=== PATIENT | female | born 1970 | race Caucasian/White ===

== ENCOUNTER 2021-04-25 14:26 | Emergency (ER) | payer OTHER, SELFPAY ==
--- NOTE | ~2021-04-25 | XR_ITS ---
EXAMINATION: XR forearm LT 2V DATE: 04/25/2021 14:58 INDICATION: Left elbow injury and pain. TECHNIQUE: 2 views of left forearm were obtained. COMPARISON: None. FINDINGS: Bone alignment is normal. No fracture. Joint spaces are well maintained. There is no elbow joint effusion. IMPRESSION: 1. Normal left forearm. Reviewed, dictated and finalized at location A. IMPRESSION: 1. Normal left forearm.
[2021-04-25 14:33] VITALS: BP 113/74; PULSE 88; RESP 14; TEMP 36.8; O2SAT 99
--- NOTE | 2021-04-25 14:43 | ED.UPPEXIN ---
HPI - Extremity Injury (Upper) General Chief Complaint: Extremity Injury, Upper Stated Complaint: left arm injury Time Seen by Provider: 04/25/21 14:43 Source: patient Mode of arrival: ambulatory Limitations: no limitations History of Present Illness HPI narrative: 50-year-old female presents to the [facility] with complaints of left proximal forearm pain for the last 9 days. States that she tripped and fell after getting tangled with a dog and has been treating it at home. States that she was just hoping to get better now concerned that there was something more serious going on. Pain with movement. Pain with palpation to the lateral aspect of the proximal forearm and elbow. Related Data Home Medications Medication Instructions Recorded Confirmed citalopram mg 04/25/21 norethindrone-e.estradiol-iron [Lo tablet 04/25/21 Loestrin Fe] Allergies Allergy/AdvReac Type Severity Reaction Status Date / Time No Known Allergies Allergy Verified 04/25/21 14:43 Review of Systems Review of Systems: All systems reviewed & are unremarkable except as noted in HPI and below Constitutional: Constitutional: Reports no additional constitutional complaints, Denies chills and Denies fever(s) Eyes: Eyes: Reports no additional eye complaints ENT: Reports system reviewed and no additional complaints, except as documented Cardiovascular: Cardiovascular: Reports no additional cardiovascular complaints and Denies chest pain Respiratory: Respiratory: Reports no additional respiratory complaints Gastrointestinal: Gastrointestinal: Reports no additional gastrointestinal complaints Musculoskeletal: Musculoskeletal: Reports as per HPI, Reports arthralgias (Left elbow) and Denies joint swelling Comments: Left forearm and elbow pain Integumentary/Breasts: Skin/Breast: Reports system reviewed and no additional complaints, except as docu, Denies pruritus, Denies erythema and Denies rash Neurologic: Reports system reviewed and no additional complaints, except as documented Psychiatric: Psychiatric: Reports no additional psychiatric complaints Allergic/Immunologic: Allergic/Immunologic: Reports no additional allergic/immunologic complaints PMFSH Past Medical History Medical History (Updated 04/27/21 @ 16:11 by Nikki Harding) Anxiety and depression Surgical History Surgical History (Updated 04/27/21 @ 16:08 by Nikki Harding) No significant past surgical history Social History Social History (Updated 04/27/21 @ 16:08 by Nikki Harding) Living arrangements: with family Gender identity (if verbalized by the patient): Female Comments At the time of my signature, I reviewed and agree with the nursing past medical, surgical, social, and family history. There is no relevant family history pertinent to the patient complaint. Exam Const: General: healthy appearing, no acute distress and alert Nutritional Appearance: well nourished Orientation/consciousness: patient oriented x3 Limitations: no limitations HENMT: Head: normal to inspection Eyes: Pupils: Equal, round and reactive pupils present Neck: Neck: normal visual inspection, no lymphadenopathy and no meningeal signs Chest: Chest palpation & inspection: normal inspection of the chest Resp: Effort & Inspection: normal respiratory effort Auscultation: clear to auscultation bilaterally Cardio: Rate: regular rate Rhythm: regular rhythm Back/Spine/Pelvis: Back: no CVA tenderness Skin: General skin exam: normal color Rashes: no rashes Wounds: no wounds Neuro: General: patient oriented x3, moves all extremities, no meningeal signs and no focal motor deficits Speech: normal speech Gait exam (Neuro): Normal gait present Extrem: General: normal to inspection and no pedal edema Right upper extremity: elbow/forearm tenderness and normal ROM; no swelling Elbow/forearm/wrist images: 1. Tenderness to palpation and movement without signs of infection, bruising, sw
== END 2021-04-25 15:10 | disposition home or self-care (01) ==
PROVIDERS: Emergency Provider Nurse Practitioner; PCP Internal Medicine
DX: S50.12XA Contusion of left forearm, initial encounter (principal); W01.0XXA Fall on same level from slipping, tripping and stumbling without subsequent striking against object, initial encounter; F41.9 Anxiety disorder, unspecified; F32.A Depression, unspecified
CPT/HCPCS: 73090; 99213; G0463

== ENCOUNTER 2023-01-09 12:54 | Emergency (ER) | payer SELFPAY ==
--- NOTE | ~2023-01-09 | XR_ITS ---
EXAMINATION: XR ankle RT min 3V INDICATION: Right ankle pain TECHNIQUE: Four views of the right ankle are obtained. COMPARISON: None available FINDINGS: There is lateral soft tissue swelling of ankle. Bone alignment is normal. There is no fract ure. The ankle mortise is intact. IMPRESSION: 1. Ankle soft tissue swelling without acute osseous abnormality. Reviewed, dictated and finalized at location B.
[2023-01-09 13:00] VITALS: BP 116/71; PULSE 92; RESP 16; TEMP 36.8; O2SAT 98
--- NOTE | 2023-01-09 13:07 | ED.LOWEXIN ---
HPI - Extremity Injury (Lower) General Chief Complaint: Extremity Injury, Lower Stated Complaint: Right Foot Injury Source: patient and RN notes reviewed History of Present Illness HPI Narrative: 52 yo F Presents to urgent care with complaints of right lateral ankle pain since Father's Day. Pt states she woke up that morning with this pain in her ankle. Pt denies any specific injury but does admit to moving furniture the day before and thought she may have twisted it. Pt has been taking Advil and applying an ankle wrap which has helped. Denies any numbness, tingling, or any other complaints. Related Data Home Medications Medication Instructions Recorded Confirmed norethindrone 1 mg-ethinyl 1 tablet PO DAILY 01/09/23 01/09/23 estradiol 20 mcg (21)-iron 75 mg (7) tablet ([place] Fe 08/01 (28)) Allergies Allergy/AdvReac Type Severity Reaction Status Date / Time No Known Allergies Allergy Verified 01/09/23 13:10 Review of Systems Review of Systems: CONSTITUTIONAL: Denies fever, chills, or sweats. EYES: Denies visual changes, redness, or discharge. ENT: Denies otalgia and sore throat CARDIOVASCULAR: Denies chest pain, palpitations, or edema. RESPIRATORY: Denies cough or dyspnea. GASTROINTESTINAL: Denies abdominal pain, nausea, vomiting, or diarrhea. GENITOURINARY: Denies dysuria or hematuria. SKIN: Denies rash or itching. MUSCULOSKELETAL: Right foot pain NEUROLOGIC: Denies headache, numbness, or weakness. Pertinent positives per HPI. PMFSH Past Medical History Medical History (Updated 01/09/23 @ 13:09 by Candis Azul APRN) Anxiety and depression Surgical History Surgical History (Updated 04/27/21 @ 16:08 by Nikki Harding APRN) No significant past surgical history Social History Social History (Updated 04/27/21 @ 16:08 by Nikki Harding APRN) Living arrangements: with family Gender identity (if verbalized by the patient): Female Comments At the time of my signature, I reviewed and agree with the nursing past medical, surgical, social, and family history. There is no relevant family history pertinent to the patient complaint. Exam Narrative: GENERAL: This is a well-nourished, well-developed patient, in no apparent distress. HEAD: normocephalic, atraumatic. EYES: Sclera clear/white. Vision is grossly intact. EARS: External ears normal, auditory canals clear and without drainage. Hearing grossly intact. NOSE: External nose normal with no obvious nasal discharge, nares without redness, no rhinorrhea. THROAT: Mucous membranes moist, posterior pharynx clear. NECK: Neck supple, non-tender without lymphadenopathy, masses or thyromegaly. CARDIOVASCULAR: Regular rate RESPIRATORY: No respiratory distress SKIN: warm, intact with no suspicious lesions or rash, good texture and turgor. NEURO: awake, alert, and oriented to person, place and time. There were no obvious focal neurologic abnormalities. EXTREMITIES: Mild tenderness and swelling to right lateral ankle. Tenderness just inferior to the lateral malleolus. Course Course Level of Care: Express Care Visit Vital Signs Vital signs: Vital Signs Temperature 98.2 F 01/09/23 13:00 Pulse Rate 92 01/09/23 13:00 Respiratory Rate 16 01/09/23 13:00 Blood Pressure 116/71 01/09/23 13:00 Pulse Oximetry 98 01/09/23 13:00 Oxygen Delivery Room Air 01/09/23 13:00 Temperature 98.2 F 01/09/23 13:11 Pulse Rate 92 01/09/23 13:11 Respiratory Rate 16 01/09/23 13:11 Blood Pressure 116/71 01/09/23 13:11 Pulse Oximetry 98 01/09/23 13:11 Oxygen Delivery Room Air 01/09/23 13:11 reviewed. MDM - Extremity Injury (Lower) MDM Narrative Medical decision making narrative: Use the RICE method at home. May take ibuprofen and/or Tylenol if needed. If symptoms persist in 1 week after conservative treatment, follow-up with specialist. Differential Diagnosis Differential diagnosis: Likely ankle sprain and
[2023-01-09 13:11] VITALS: BP 116/71; PULSE 92; RESP 16; TEMP 36.8; O2SAT 98
== END 2023-01-09 13:28 | disposition home or self-care (01) ==
PROVIDERS: Emergency Provider Nurse Practitioner Family; PCP Internal Medicine
DX: S93.401A Sprain of unspecified ligament of right ankle, initial encounter (principal); S96.911A Strain of unspecified muscle and tendon at ankle and foot level, right foot, initial encounter; X50.0XXA Overexertion from strenuous movement or load, initial encounter
CPT/HCPCS: 73610; 99213; G0463

== ENCOUNTER 2024-05-20 08:29 | Outpatient (CLI) | payer OTHER, SELFPAY ==
--- NOTE | ~2024-05-20 | XR_ITS ---
EXAMINATION: XR chest 2V 05/20/2024 08:40 INDICATION: Left lower chest pain PROCEDURE: 2 view chest COMPARISON: No prior studies for comparison. FINDINGS: The lungs are clear. The cardiomediastinal silhouette is within normal limits. There are no pleural effusions. There is no pneumothorax suspected. IMPRESSION: 1: NO ACUTE CARDIOPULMONARY DISEASE. Reviewed, dictated and finalized at location B. 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
== END 2024-05-20 08:30 | disposition home or self-care (01) ==
LOC: GOSHIMG 08:33
PROVIDERS: PCP Internal Medicine; Visit Provider Nurse Practitioner Family
DX: R07.82 Intercostal pain (principal)
CPT/HCPCS: 71046

== ENCOUNTER 2024-09-16 13:24 | Outpatient (CLI) | payer OTHER, SELFPAY ==
--- NOTE | ~2024-09-16 | MM_ITS ---
EXAMINATION: MM screening kiran BI w kimberly HISTORY: Screening TECHNIQUE: Craniocaudal and mediolateral oblique 3-D tomosynthesis images were obtained and synthetic 2-D images were generated. CAD analysis was submitted and interpreted. COMPARISON: No prior mammogram is available for comparison at this institution. If prior imaging does become available, comparison will be performed. BREAST PARENCHYMAL COMPOSITION: There are scattered areas of fibroglandular density. FINDINGS: Punctate and bulky calcifications are detected bilaterally, benign in appearance. 9 mm well-circumscribed asymmetry within the slightly inner retroareolar position of the right breast , approximately 2 cm from the nipple, for which spot compression views followed by a focused ultrasou nd is recommended. Otherwise unremarkable parenchymal pattern without suspicious microcalcifications or architectural distortion. IMPRESSION: Right breast asymmetry for which spot compression views followed by a focused ultrasound is recommend ed. BI-RADS Category 0: Incomplete: Needs additional imaging evaluation. Reviewed, dictated and finalized at location A. T IMPRESSION: Right breast asymmetry for which spot compression views followed by a focused u ltrasound is recommended. BI-RADS Category 0: Incomplete: Needs additional imaging evaluation.
== END 2024-09-16 13:25 | disposition home or self-care (01) ==
PROVIDERS: PCP Internal Medicine; Visit Provider Internal Medicine
DX: Z12.31 Encounter for screening mammogram for malignant neoplasm of breast (principal); R92.8 Other abnormal and inconclusive findings on diagnostic imaging of breast
CPT/HCPCS: 77063; 77067